=== PATIENT | male | born 1960 | race Caucasian/White ===

== ENCOUNTER 2017-12-24 20:00 | Emergency (ER) | payer BC, OTHER ==
[2017-12-24 20:16] VITALS: BMI 25.7
--- NOTE | 2017-12-24 20:36 | DR.GENAD ---
HPI - PCP Primary Care Physician: ZACH - Complaint/Symptoms Chief Complaint Doctors Comments: Patient states he took 10 pain pills today in hopes that he would not wake up. States he has been taking to many Hydrocodone and he has been taking hydrocodone since he was in his early fifty's. States he has been having a lot of problems at home with his having cancer and the bad arthritis and problems with his joints he has been taking Hydrocodone 8- 19 daily and taking xanax at night to help him sleep. States he has thought about hurting himself many times and recently he put a gun to his head but was not man enough to pull the trigger. States today he was thinking about getting "Bessie's gun" today and using it. States Dr. Zepeda usually gives him 180 pills monthly but he has run out and has another prescription but cannot get it filled until Wednesday. States he has been drinking 2 shots and taking two hydrocodone but that has increased to 4-6 in six hours. States he went to rehab with his second but do not feel it did any good. He denies chest pain or SOB. Chief Complaint:: STARTED TAKING OPIODS FOR HEADACHES; TAKING APPROX 8-10 OF 10MG OXYCODONE PER DAY. PT STATES HE IS A NERVOUS WRECK. Self Treatment fo Chief Complaint: PT STATES HE WANTS HELP; PT STATES HE TOOK 10 TABS AT ONE TIME AT APPROX 1600 TODAY AND XANAX WITH THE HOPES OF NOT WAKING UP. - Nurses notes reviewed Nurses Notes Review: Yes - Source History Provided: Patient - Mode of Arrival Mode of Arrival: Ambulatory - Timing Onset of Chief Complaint: 12/24/17 Came on: Gradually - Duration Duration: Intermittent Duration: Weeks - Severity Severity: Moderate - Modifying Factors Worsens:: nothing Improves:: nothing PMH - PMH Past Medical History: Yes Past Medical History: Hypertension Past Medical History Comment: LOSARTAN 20MG TAB Past Surgical History: Yes Surgical History: Appendectomy, Cholecystectomy - Family History History of Family Medical Conditions: No - Social History Alcohol Use: DAILY Do you use any recreational Drugs:: No Lives With: Spouse Lives Where: Home - infectious screening In the last 2 months have you had wt loss of >10#?: NO Have you had fever, night sweats or hemotysis?: No Have you traveled outside the country in the last 6 months?: No Isolation: Standard ROS - Review of Systems Constitutional: No Symptoms Reported. negative: See HPI, Chills, Diaphoresis, Fever, Malaise, Weakness, Irritable, Fatigue, Loss of Appetite, Other Eyes: No Symptoms Reported ENTM: No Symptoms Reported Respiratoy: No Symptoms Reported Cardiovascular: No Symptoms Reported. negative: See HPI, Chest Pain, Edema, Palpitations, Syncope, Cyanosis, Skin Mottling, Other Gastrointestinal/Abdominal: No Symptoms Reported. negative: See HPI, Abdominal Pain, Constipation, Diarrhea, Nausea, Vomiting, Food Intolerance, Other Genitourinary: No Symptoms Reported Neurological: Anxiety, Depressed, Emotional Problems Musculoskeletal: No Symptoms Reported Integumentary: No Symptoms Reported. negative: See HPI, Change in Color, Change in Hair/Nails, Dryness, Lesions, Lumps, Rash, Itching, Wound, Bruises, Juandice, Other Hematologic/Lymphatic: No Symptoms Reported. negative: See HPI, Anemia, Blood Clots, Easy Bleeding, Easy Bruising, Swollen Glands, Lymphadenopathy, Other Endocrine: No Symptoms Reported Psychiatric: No Symptoms Reported, Anxiety, Depression, Suicidal (want to take pills and not wake up) PE - Vital Signs Vitals: Temperature 99.2 F Pulse Rate 98 Respiratory Rate 22 Blood Pressure 154/92 O2 Sat by Pulse Oximetry 99 - General Limitations: No Limitations General Appearance: Alert, In No Apparent Distress - Head Head Exam: Normal Inspection, Atraumatic, Normocephalic - Eyes Eye exam: Normal Appearance, PERRL, EOMI. negative: Scleral Icterus, Conjunctival Injection, Nystagmus, Miosis, Mydrasis, Periorbital Swelling, Periorbital Tenderness, Other - ENT ENT Exam: Normal Exam, Normal Oropharynx, Normal External Ear Exam, Mucous Membranes Moist, TM's Normal Bilaterally External Ear Exam: Normal External Inspection. negative: Auricular Hematoma, Auricular Trauma, Mastoid Tenderness, Pain with Movement, External Tenderness, Periauricular Adenopathy, Other TM/Canal Exam: Bilateral Normal Nose Exam: Normal Nose Exam Mouth Exam: Normal Inspection Throat Exam: Normal Inspection. negative: Tonsillar Erythema, Tonsillomegaly, Tonsillar Exudate, R Peritonsillar Mass, L Peritonsillar Mass, Muffled Voice, Other - Neck Neck Exam: Normal Inspection, Full ROM, Trachea Midline. negative: Tenderness, Meningismus, Lymphadenopathy, Thyromegaly, Other - Chest Chest Inspection: Normal Inspection - Respiratory Respiratory Exam: Normal Lung Sounds Bilat Respiratory Exam: Bilateral Clear to Auscultation - Cardiovascular Cardiovascular Exam: Regular Rate, Normal Rhythm, Normal Heart Sounds. negative : Bradycardia, Tachycardia, Irregular Rhythm, Systolic Murmur, Diastolic Murmur , Rubs, Gallop, Clicks, JVD, +S1, +S2, +S3, +S4, Other - Abdominal Exam Abdominal Exam: Normal Inspection, Normal Bowel Sounds, Soft. negative: Distention, Tenderness, Guarding, Rebound, Rigidity, Dimnished Bowel Sounds, Hyperactive Bowel Sounds, Hypoactive Bowel Sounds, Organomegaly, Trauma, Incision, Ascites, Mass, Bruit, Pulsatile Mass, Hernia, Other Abdominal Tenderness: negative: RUQ, RLQ, LUQ, LLQ, Epigastrium, Suprapubic, Diffuse, Mild, Moderate, Severe, Other - Extremities Extremities Exam: Normal Inspection, Full ROM, Normal Capillary Refill. negative: Tenderness, Edema, Joint Swelling, Calf Tenderness, Other - Back Back Exam: Normal Inspection, Full ROM. negative: Tenderness, (R) CVA Tenderness, (L) CVA Tenderness, Muscle Spasm, Paraspinal Tenderness, Vertebral Tenderness, Rashes, (R) Sciatic Notch Tenderness, (L) Sciatic Notch Tendern, (R ) Straight Leg Raise, (L) Straight Leg Raise, Other - Neurologic Neurological Exam: Alert, Oriented X3, CN II-XII Intact, Normal Gait, Reflexes Normal - Psychiatric Psychiatric Exam: Normal Affect, Normal Mood, Depressed, Flat Affect, Suicidal Ideation - Skin Skin Exam: Warm, Dry, Intact, Normal Color. negative: Rash, Cyanosis, Diaphoresis, Erythema, Pallor, Mottled, Other ROR - Labs Reviewed Laboratory Results Reviewed?: Yes (all labs and x-ray results reviewed and discussed with patient) Result Diagrams: 12/24/17 20:28 12/24/17 20:28 Laboratory: WBC 7.8 X10^3/uL (3.6-10.0) 12/24/17 20:28 RBC 5.24 X10^6/uL (4.7-6.0) 12/24/17 20:28 Hgb 17.1 g/dL (13.5-18.0) 12/24/17 20: Hct 48.8 % (42.0-54.0) 12/24/17 20: MCV 93.2 fL (80.0-100.0) 12/24/17: MCH 32.6 pg (27.0-34.0) 12/24/17: MCHC 35.0 g/dL (33.0-35.0) 12/24/17: RDW 13.3 % (11.6-16.5) 12/24/17: Plt Count 210 X10^3/uL (150.0-450.0) 12/24/17 20: MPV 7.4 fL (7.4-11.0) 12/24/17: Neut % 58.2 % (42.0-75.0) 12/24/17 Lymph % 28.1 % (21.0-51.0) 12/24/17: Marin % 11.9 % (0.0-13.0) 12/24/17: Eos % 1.3 % (0.9-2.9) 12/24/17 20: Baso % 0.5 % (0.2-1.0) 12/24/17: Neut # 4.6 x10^3/uL (2.2-4.8) 12/24/17: Lymph # 2.2 X10^3/uL (1.3-2.9) 12/24/17: Marin # 0.9 x10^3/uL (0.3-0.8) H 12/24/17: Eos # 0.1 x10^3/uL (0.0-0.2) 12/24/17 20: Baso # 0.0 X10^3/uL (0.0-0.1) 12/24/17: Absolute Nucleated RBC 0.0 /100WBC 12/24/17: Sodium 141 mmol/L (136-145) 12/24/17 20: Corrected Sodium TNP 12/24/17: Potassium 3.6 mmol/L (3.5-5.1) 12/24/17: Chloride 100 mmol/L (98-107) 12/24/17 20:28 Carbon Dioxide 29.4 mmol/L (21-32) 12/24/17 20:28 BUN 14 mg/dL (7-18) 12/24/17 20:28 Creatinine 1.22 mg/dL (0.70-1.30) 12/24/17 20:28 Est GFR (MDRD) Af Amer > 60 (>60) 12/24/17 20:28 Est GFR (MDRD) Non-Af > 60 (>60) 12/24/17 20:28 Glucose 97 mg/dL (65-99) 12/24/17 20:28 Calcium 9.1 mg/dL (8.5-10.1) 12/24/17 20:28 Corrected Calcium TNP 12/24/17 20: Total Bilirubin 0.80 mg/dL (0.2-1.0) 12/24/17 20:28 AST 36 Units/L (15-37) 12/24/17 20: ALT 39 Units/L (12-78) 12/24/17 20:28 Alkaline Phosphatase 39 Units/L (46-116) L 12/24/17 20:28 Creatine Kinase 579 Units/L (39-308) H 12/24/17 23:20 CK-MB (CK-2) 8.0 ng/mL (0-4.0) H* 12/24/17 23:20 CK/CKMB % Calc 1.4 % (<4) 12/24/17 23:20 Troponin I < 0.02 ng/mL (0-1.5) 12/24/17 23:20 Total Protein 7.9 g/dL (6.4-8.2) 12/24/17 20: Albumin 4.5 g/dL (3.4-5.0) 12/24/17 20: Globulin 3.4 g/dL (2.5-4.5) 12/24/17 20:28 Albumin/Globulin Ratio 1.3 Ratio (1.1-2.1) 12/24/17 20:28 Specimen Type Clean catch urine 12/24/17 20:28 Urine Color Yellow (YELLOW) 12/24/17 20:28 Urine Appearance Slightly hazy (CLEAR) 12/24/17 20:28 Urine pH 5.0 (5.0 - 8.0) 12/24/17 20:28 Ur Specific E[place]ley 1.020 (1.000-1.030) 12/24/17 20:28 Urine Protein 2+ (NEGATIVE) 12/24/17 20:28 Urine Glucose (UA) Negative (NEGATIVE) 12/24/17 20:28 Urine Ketones 3+ (NEGATIVE) 12/24/17 20:28 Urine Occult Blood 1+ (NEGATIVE) 12/24/17 20:28 Urine Nitrite Negative (NEGATIVE) 12/24/17 20:28 Urine Bilirubin Negative (NEGATIVE) 12/24/17 20:28 Urine Urobilinogen Normal (NORMAL) 12/24/17 20:28 Ur Leukocyte Esterase 1+ (NEGATIVE) 12/24/17 20:28 Urine RBC Rare /HPF (NONE SEEN) 12/24/17 20:28 Urine WBC Rare /HPF (NONE SEEN) 12/24/17 20:28 Ur Squamous Epith Cells Few /HPF (NEGATIVE) 12/24/17 20:28 Urine Bacteria Trace /HPF (NEGATIVE) 12/24/17 20:28 Ur Culture Indicated? No/not indicated 12/24/17 20:28 Salicylates < 2.8 mg/dL (2.8-20) L 12/24/17 20:28 Urine Opiates Screen Positive (NEG=<300) 12/24/17 20:28 Urine Methadone Screen Negative (NEG=<300) 12/24/17 20:28 Acetaminophen 5.1 ug/mL (10-30) L 12/24/17 20:28 Ur Barbiturates Screen Negative (NEG=<200) 12/24/17 20:28 Ur Phencyclidine Scrn Negative (NEG=<25) 12/24/17 20:28 Ur Amphetamines Screen Negative (NEG=<1000) 12/24/17 20:28 U Benzodiazepines Scrn Positive (NEG=<200) 12/24/17 20:28 Urine Cocaine Screen Negative (NEG=<300) 12/24/17 20:28 U Marijuana (THC) Screen Negative (NEG=<50) 12/24/17 20:28 Ethyl Alcohol mg/dL < 3 mg/dL (0-19.9) 12/24/17 20:28 - Diagnosis Discharge Problem: depressive neurosis w/suicidal ideation, Hydrocodone use disorder, severe, dependence, multiple drug usage, Anxiety and depression - Discharge Plan Disposition: 65 XFER TO PSYCH HOSP/UNIT Condition: Stable - Follow ups/Referrals Follow ups/Referrals: Onesimo Zepeda [Primary Care Provider] - 3 days - Instructions
[2017-12-24 20:47] LABS: BASOPHILS % (AUTO) 0.5 % (0.2-1.0); EOSINOPHILS # (AUTO) 0.1 x10^3/uL (0.0-0.2); EOSINOPHILS % (AUTO) 1.3 % (0.9-2.9); HEMATOCRIT 48.8 % (42.0-54.0); HEMOGLOBIN 17.1 g/dL (13.5-18.0); LYMPHOCYTES # (AUTO) 2.2 X10^3/uL (1.3-2.9); LYMPHOCYTES % (AUTO) 28.1 % (21.0-51.0); MEAN CORPUSCULAR HEMOGLOBIN 32.6 pg (27.0-34.0); MEAN CORPUSCULAR VOLUME 93.2 fL (80.0-100.0); MEAN PLATELET VOLUME 7.4 fL (7.4-11.0); MONOCYTES # (AUTO) 0.9 x10^3/uL (0.3-0.8); MONOCYTES % (AUTO) 11.9 % (0.0-13.0); NEUTROPHILS # (AUTO) 4.6 x10^3/uL (2.2-4.8); NEUTROPHILS % (AUTO) 58.2 % (42.0-75.0); PLATELET COUNT 210 X10^3/uL (150.0-450.0); RED BLOOD COUNT 5.24 X10^6/uL (4.7-6.0); RED CELL DISTRIBUTION WIDTH 13.3 % (11.6-16.5); WHITE BLOOD COUNT 7.8 X10^3/uL (3.6-10.0)
[2017-12-24 20:53] LABS: ACETAMINOPHEN 5.1 ug/mL (10-30); SALICYLATE < 2.8 mg/dL (2.8-20)
[2017-12-24 20:58] LABS: BILIRUBIN,URINE NEGATIVE (NEGATIVE); BLOOD/HEMOGLOBIN,URINE 1+ (NEGATIVE); GLUCOSE, URINE NEGATIVE (NEGATIVE); KETONES,URINE 3+ (NEGATIVE); LEUKOCYTE ESTERASE ,URINE 1+ (NEGATIVE); NITRITES,URINE NEGATIVE (NEGATIVE); PROTEIN,URINE 2+ (NEGATIVE); UROBILINOGEN,URINE NORMAL (NORMAL)
[2017-12-24 21:00] LABS: ALANINE AMINOTRANSFERASE 39 Units/L (12-78); ALBUMIN 4.5 g/dL (3.4-5.0); ALKALINE PHOSPHATASE 39 Units/L (46-116); ASPARTATE AMINO TRANSFERASE 36 Units/L (15-37); BLOOD ALCOHOL < 3 mg/dL (0-19.9); BLOOD UREA NITROGEN 14 mg/dL (7-18); CALCIUM 9.1 mg/dL (8.5-10.1); CARBON DIOXIDE 29.4 mmol/L (21-32); CHLORIDE 100 mmol/L (98-107); CREATININE 1.22 mg/dL (0.70-1.30); SODIUM 141 mmol/L (136-145); TOTAL PROTEIN 7.9 g/dL (6.4-8.2); eGFR BLACK RACES > 60 (>60); eGFR NON BLACK RACES > 60 (>60)
[2017-12-24 21:05] LABS: APPEARANCE,URINE SLIGHTLY HAZY (CLEAR); COLOR,URINE YELLOW (YELLOW)
[2017-12-24 21:09] LABS: RBC,URINE RARE /HPF (NONE SEEN)
[2017-12-24 21:11] LABS: BACTERIA,URINE TRACE /HPF (NEGATIVE); SQUAMOUS EPITHELIAL CELL,UR FEW /HPF (NEGATIVE)
[2017-12-24 21:23] LABS: CKMB % 1.5 % (<4); CREATINE KINASE 596 Units/L (39-308); TROPONIN I < 0.02 ng/mL (0-1.5)
[2017-12-24 21:30] LABS: CREATINE KINASE MB 9.2 ng/mL (0-4.0)
[2017-12-24] MEDS ORDERED: VISTARIL PO ONE ×2 (21:39→21:40)
[2017-12-24] MEDS ORDERED: NS 1000 ML 1,000 ML ONE ×2 (22:02→23:08)
[2017-12-24] MEDS ORDERED: NS 1000 ML 1,000 ML IV ONE ×2 (22:02→23:12)
[2017-12-25] MEDS ORDERED: PHENERGAN INJ 25 MG IV ONE (00:05)
[2017-12-25] MEDS ORDERED: PHENERGAN INJ 25 MG ONE (00:10)
[2017-12-25 00:12] LABS: CKMB % 1.4 % (<4); CREATINE KINASE 579 Units/L (39-308); TROPONIN I < 0.02 ng/mL (0-1.5)
[2017-12-25] MEDS ORDERED: BENADRYL INJ 50 MG VIAL IM ONE (03:07)
[2017-12-25] MEDS ORDERED: BENADRYL INJ 50 MG VIAL ONE (03:14)
[2017-12-25] MEDS ORDERED: ATIVAN INJ 2 MG VIAL IM ONE (05:41)
[2017-12-25] MEDS ORDERED: ATIVAN INJ 2 MG VIAL ONE (05:42)
[2017-12-25 07:32] VITALS: BP 148/98
== END 2017-12-25 08:06 ==
LOC: ER 20:22
DX: R45.851 Suicidal ideations (principal); F11.21 Opioid dependence, in remission; F19.10 Other psychoactive substance abuse, uncomplicated; F41.8 Other specified anxiety disorders
CPT/HCPCS: 36415; 80053; 80307; 81001; 82550; 82553; 84484; 85025; 93005; 93010; 96365; 96367; 96372; 96374; 99282; 99285; A4222; Q0177; G0434; G6038; G6039; G6040; J1200; J2060; J2550